=== PATIENT | male | born 1945 | race Caucasian/White ===

== ENCOUNTER 2019-09-25 10:15 | Outpatient (CLI) | payer MEDICARE, SELFPAY ==
[2019-09-25 10:50] LABS: Basophils Absolute Auto 0.05 K/mm3 (0.00-0.10); Basophils Percent Auto 0.7 % (0.0-1.0); Eosinophils Absolute Auto 0.12 K/mm3 (0.02-0.50); Eosinophils Percent Auto 1.6 % (1.0-6.0); Hematocrit 46.4 % (37.0-46.0); Hemoglobin 15.5 g/dL (12.4-15.3); Immature Granulocyte Absolute 0.02 K/mm3 (0.00-0.00); Immature Granulocyte Percent A 0.3 % (0.0-0.0); Lymphocytes Absolute Auto 2.05 K/mm3 (1.10-4.50); Lymphocytes Percent Auto 27.1 % (18.0-42.0); Mean Corpuscular HGB Conc 33.4 g/dL (32.0-36.0); Mean Corpuscular Hemoglobin 29.5 pg (27.0-31.0); Mean Corpuscular Volume 88.4 fL (78.0-102.0); Mean Platelet Volume 12.1 fl (8.7-11.0); Monocytes Absolute Auto 0.78 K/mm3 (0.10-0.90); Monocytes Percent Auto 10.3 % (2.0-11.0); Neutrophils Absolute Auto 4.6 K/mm3 (1.7-7.2); Platelet Count Result 154 K/mm3 (150-420); Red Blood Count 5.25 M/mm3 (4.70-6.10); Red Cell Distribution Width 12.7 % (11.6-14.4); White Blood Count 7.6 K/mm3 (4.8-10.8)
[2019-09-25 11:04] LABS: Creatinine Urine 85.66 mg/dL (40-278)
[2019-09-25 11:21] LABS: MALB Creatinine Ratio 11.9 mg/g (0-30); Microalbumin Urine Random 10.2 mg/L
[2019-09-25 11:37] LABS: Alanine Aminotransferase 20 U/L (16-63); Albumin Level 3.9 g/dL (3.4-5.0); Alkaline Phosphatase 80 U/L (46-116); Anion Gap 15.7 mmol/L (7-16); Aspartate Amino Transferase 17 U/L (15-37); Bilirubin,Total 0.4 mg/dL (0.00-1.00); Blood Urea Nitrogen 18 mg/dL (7-18); Calcium 9.2 mg/dL (8.5-10.1); Carbon Dioxide 24 mmol/L (21-32); Chloride 106 mmol/L (98-108); Cholesterol 131 mg/dL (0-200); Estimated Glomerular Filt Rate 51; Glucose 201 mg/dL (70-99); HDL Direct 37 mg/dL (40-60); LDL Cholesterol Calculated 68 mg/dL (<130); Osmolality Calculated 299 mOsm/kg (285-295); Potassium 4.7 mmol/L (3.5-5.1); Sodium 141 mmol/L (136-145); Total Protein 7.1 g/dL (6.4-8.2); Triglycerides 130 mg/dL (0-150)
[2019-09-25 11:38] LABS: Thyroid Stimulating Hormone Reflex 1.02 u/IU/mL (0.36-3.74)
== END 2019-09-25 10:16 | disposition home or self-care (01) ==
LOC: CHSLAB 10:19
PROVIDERS: PCP Family Medicine; Visit Provider Family Medicine
DX: E11.65 Type 2 diabetes mellitus with hyperglycemia (principal); Z79.4 Long term (current) use of insulin; I10 Essential (primary) hypertension
CPT/HCPCS: 36415; 80053; 80061; 82043; 84443; 85025

== ENCOUNTER 2019-12-28 14:46 | Outpatient (CLI) | payer MEDICARE, SELFPAY ==
--- NOTE | ~2019-12-28 | XR_ITS ---
EXAMINATION: XR foot LT min 3V EXAM DATE: 12/28/2019 15:08 INDICATION: Initial encounter following injury, with pain of the left foot. TECHNIQUE: Left foot dorsoplantar, lateral and oblique projections obtained and reviewed. There is n o prior study for comparison. FINDINGS: Left metatarsal bones unremarkable. There are no acute fractures or dislocations identifi ed. There is no subcutaneous gas. The soft tissue is unremarkable. There are no radiopaque foreig n bodies. Tiny inferior calcaneal spur. IMPRESSION: No acute osseous findings. Reviewed, dictated and finalized at location A. IMPRESSION: No acute osseous findings.
== END 2019-12-28 14:47 | disposition home or self-care (01) ==
LOC: CHSIMG 14:49
PROVIDERS: PCP Family Medicine; Visit Provider Podiatrist
DX: M79.672 Pain in left foot (principal); M77.52 Other enthesopathy of left foot and ankle
CPT/HCPCS: 73630

== ENCOUNTER 2020-09-01 07:09 | Outpatient (CLI) | payer MEDICARE, SELFPAY ==
[2020-09-01 07:48] LABS: Anion Gap 7 mmol/L (8-16); Blood Urea Nitrogen 25 mg/dL (7-18); Calcium 9.6 mg/dL (8.5-10.1); Carbon Dioxide 28 mmol/L (21-32); Chloride 99 mmol/L (98-108); Estimated Glomerular Filt Rate 41; Glucose 233 mg/dL (70-99); Osmolality Calculated 289 mOsm/kg (285-295); Potassium 4.6 mmol/L (3.5-5.1); Sodium 134 mmol/L (136-145)
== END 2020-09-01 07:10 | disposition home or self-care (01) ==
LOC: CHSLAB 07:12
PROVIDERS: PCP Family Medicine; Visit Provider Internal Medicine Endocrinology, Diabetes & Metabolism
DX: E11.65 Type 2 diabetes mellitus with hyperglycemia (principal); Z79.4 Long term (current) use of insulin
CPT/HCPCS: 36415; 80048

== ENCOUNTER 2020-10-05 07:14 | Outpatient (CLI) | payer MEDICARE, SELFPAY ==
[2020-10-05 08:18] LABS: Anion Gap 9 mmol/L (8-16); Blood Urea Nitrogen 23 mg/dL (7-18); Calcium 9.2 mg/dL (8.5-10.1); Carbon Dioxide 29 mmol/L (21-32); Chloride 101 mmol/L (98-108); Estimated Glomerular Filt Rate 42; Glucose 229 mg/dL (70-99); Osmolality Calculated 298 mOsm/kg (285-295); Potassium 4.6 mmol/L (3.5-5.1); Sodium 139 mmol/L (136-145)
== END 2020-10-05 07:15 | disposition home or self-care (01) ==
PROVIDERS: PCP Family Medicine; Visit Provider Internal Medicine Endocrinology, Diabetes & Metabolism
DX: E11.65 Type 2 diabetes mellitus with hyperglycemia (principal); Z79.4 Long term (current) use of insulin
CPT/HCPCS: 36415; 80048

== ENCOUNTER 2020-11-08 06:59 | Outpatient (CLI) | payer MEDICARE, SELFPAY ==
[2020-11-08 08:21] LABS: Cholesterol 144 mg/dL (0-200); HDL Direct 37 mg/dL (40-60); LDL Cholesterol Calculated 80 mg/dL (<130); Triglycerides 136 mg/dL (0-150)
== END 2020-11-08 07:00 | disposition home or self-care (01) ==
LOC: CHSLAB 07:02
PROVIDERS: PCP Family Medicine; Visit Provider Internal Medicine Cardiovascular Disease
DX: E78.5 Hyperlipidemia, unspecified (principal)
CPT/HCPCS: 36415; 80061

== ENCOUNTER 2020-12-14 09:26 | Outpatient (CLI) | payer MEDICARE, SELFPAY ==
[2020-12-14 10:06] LABS: Creatinine Urine 67.08 mg/dL (40-278); MALB Creatinine Ratio 19.3 mg/g (0-30); Microalbumin Urine Random < 13.0 mg/L
== END 2020-12-14 09:27 | disposition home or self-care (01) ==
PROVIDERS: PCP Family Medicine; Visit Provider Internal Medicine Endocrinology, Diabetes & Metabolism
DX: E11.65 Type 2 diabetes mellitus with hyperglycemia (principal); Z79.4 Long term (current) use of insulin
CPT/HCPCS: 82043

== ENCOUNTER 2021-09-22 15:46 | Outpatient (RCR) | payer MEDICARE, SELFPAY ==
--- NOTE | 2021-09-22 17:19 | PTOPEVAL ---
Thank you for referring Mahesh Menjivar to [facility] [place].? The patient is scheduled to be seen for therapy? ____x/week for ___ weeks. Please review, sign, date and return this plan of care EVANGELINA. I agree with and certify that the following plan of care is medically necessary. Referring Physician Date Admitting Provider: Attending Provider: Florin Solis DO Referring Provider: *PT Outpatient Evaluation Start: 09/22/21 15:54 Freq: Status: Active Protocol: Document 09/22/21 15:55 ACR (Rec: 09/22/21 17:18 ACR [id number]) Therapy Assessment Status Assessment Status Assessment Status Evaluation Evaluation Information Problem Diagnosis dorsalgia and unsteadiness on feet Onset 09/21/21 Subjective Information Patient states that he has Query Text:As Reported By Patient/ been having pain for awhile, Family but it has gotten so bad that he went to the MD. He states that he has difficulty with his back swing in golf, lifting heavy objects without pain, navigating steps, and walking for a period of time. Patient states that he cramps up pretty easily. He states that has had one fall, but he tripped over a hose. He states that he sometimes feels unsteady, mainly in the morning and notices that he has to maintain his balance using the wall. Patient states that his goal for therapy is to improve his flexibility and balance. Prior Level of Function Activity Level (Last 3 Months) Occupation retired Hand Dominance Right Activity of Daily Living Ability Independent Indoor/Home Mobility Independent Community Mobility Independent Stairs Ability Independent Functional Cognition (Planning, Shopping Independent , Taking Medications) Cooking Yes Cleaning Yes Laundry Yes Shopping Yes Driving Yes Pain Assessment Timing of Pain Assessment Timing of Pain Assessment Assessment Pain Scale Pain Scale Used Numeric (1 - 10) Self Report Pain Assessment Lower Back Reported Pain Level 7 Greatest Pain Intensity
--- NOTE | 2021-10-20 11:35 | PTOPEVAL ---
Thank you for referring Mahesh Menjivar to [facility].? The patient is scheduled to be seen for therapy? ____x/week for ___ weeks. Please review, sign, date and return this plan of care EVANGELINA. I agree with and certify that the following plan of care is medically necessary. Referring Physician Date Admitting Provider: Attending Provider: Florin Solis DO Referring Provider: *PT Outpatient Evaluation Start: 09/22/21 15:54 Freq: Status: Active Protocol: Document 10/20/21 10:34 ACR (Rec: 10/20/21 11:34 ACR [id number]) Therapy Assessment Status Assessment Status Assessment Status Progress Evaluation Information Problem Diagnosis dorsalgia and unsteadiness on feet Onset 09/21/21 Subjective Information Patient states that he is Query Text:As Reported By Patient/ doing a lot better since Family beginning therapy. His pain has decreased and he is able to perform daily activities with no increase in pain. He states that after the next couple of visits he would like to be done for a bit until he starts to have difficulty again, but he is doing his exercises at home. Pain Assessment Timing of Pain Assessment Timing of Pain Assessment Assessment Pain Scale Pain Scale Used Numeric (1 - 10) Self Report Pain Assessment Lower Back Reported Pain Level 0 Greatest Pain Intensity 4 Pain Score Pain Score 0: Self Report Interventions Used Interventions Used By Clinicians Activity or ADL's,Exercise Cervical and Lumbar ROM Lumbar ROM Lumbar ROM 75% of Normal Lower Extremity Muscle Strength Testing Hip Strength Right Hip Flexion Strength 5 Normal Hip Abduction Strength 4+ Good + Left Hip Flexion Strength 5 Normal Hip Abduction Strength 4+ Good + Knee Strength Left Knee Flexion Strength 5 Normal Knee Extension Strength 5 Normal Right Knee Flexion Strength 5 Normal Knee Extension Strength 5 Normal Balance Assessment Tinetti Balance Assessment Sitting Balance Steady, safe Ability to Arise Able, w/o using arms Attempts to Arise Arises on 1st attempt Immediate Standing Balance Steady w/o support Standing Balance Narrow stance w/o support Nudged Response Steady Standing with Eyes Closed Steady Step Pattern Turning 360 Degrees Continuous steps Stability
--- NOTE | 2021-10-27 13:09 | PTOPEVAL ---
Thank you for referring Mahesh Menjivar to [facility].? The patient is scheduled to be seen for therapy? ____x/week for ___ weeks. Please review, sign, date and return this plan of care EVANGELINA. I agree with and certify that the following plan of care is medically necessary. Referring Physician Date Admitting Provider: Attending Provider: Florin Solis DO Referring Provider: *PT Outpatient Evaluation Start: 09/22/21 15:54 Freq: Status: Active Protocol: Document 10/27/21 10:00 ACR (Rec: 10/27/21 13:08 ACR [id number]) Therapy Assessment Status Assessment Status Assessment Status Discharge Evaluation Information Problem Diagnosis dorsalgia and unsteadiness on feet Onset 09/21/21 Subjective Information Patient reports that he is Query Text:As Reported By Patient/ doing so much better since Family beginning theapy with his flexibility and no longer has the spot in his back that caused him a lot of pain. He occasionally gets pain when he overexerts himself. He states that he does not use the adame to assist with balance and walking on uneven terrain is better. Pain Assessment Timing of Pain Assessment Timing of Pain Assessment Assessment Pain Scale Pain Scale Used Numeric (1 - 10) Self Report Pain Assessment Lower Back Reported Pain Level 0 Greatest Pain Intensity 4 Pain Score Pain Score 0: Self Report Interventions Used Interventions Used By Clinicians Activity or ADL's,Exercise Cervical and Lumbar ROM Lumbar ROM Lumbar ROM 75% of Normal Lower Extremity Muscle Strength Testing Hip Strength Right Hip Flexion Strength 5 Normal Hip Abduction Strength 5 Normal Left Hip Flexion Strength 5 Normal Hip Abduction Strength 5 Normal Knee Strength Left Knee Flexion Strength 5 Normal Knee Extension Strength 5 Normal Right Knee Flexion Strength 5 Normal Knee Extension Strength 5 Normal Balance Assessment Tinetti Balance Assessment Sitting Balance Steady, safe Ability to Arise Able, w/o using arms Attempts to Arise Arises on 1st attempt Immediate Standing Balance Steady w/o support Standing Balance Narrow stance w/o support Nudged Response Steady Standing with Eyes Closed Steady Step Pattern Turning 360 Degrees Continuous steps Stability Turn
== END 2021-10-27 14:41 | disposition home or self-care (01) ==
LOC: CHSPT 15:46
PROVIDERS: PCP Family Medicine; Visit Provider Family Medicine
DX: M54.9 Dorsalgia, unspecified (principal); G89.29 Other chronic pain; R26.81 Unsteadiness on feet
CPT/HCPCS: 97014; 97110; 97112; 97161; G0283

== ENCOUNTER 2021-12-20 09:22 | Outpatient (CLI) | payer MEDICARE, SELFPAY ==
[2021-12-20 09:37] LABS: Hematocrit 52.3 % (37.0-46.0); Hemoglobin 16.6 g/dL (12.4-15.3); Mean Corpuscular HGB Conc 31.7 g/dL (32.0-36.0); Mean Corpuscular Hemoglobin 29.2 pg (27.0-31.0); Mean Corpuscular Volume 91.9 fL (78.0-102.0); Mean Platelet Volume 11.4 fl (8.7-11.0); Platelet Count Result 192 K/mm3 (150-420); Red Blood Count 5.69 M/mm3 (4.70-6.10); Red Cell Distribution Width 13.6 % (11.6-14.4); White Blood Count 7.6 K/mm3 (4.8-10.8)
[2021-12-20 09:53] LABS: Alanine Aminotransferase 19 U/L (16-63); Albumin Level 3.4 g/dL (3.4-5.0); Alkaline Phosphatase 87 U/L (46-116); Anion Gap 6 mmol/L (8-16); Aspartate Amino Transferase 15 U/L (15-37); Bilirubin,Total 0.3 mg/dL (0.00-1.00); Blood Urea Nitrogen 24 mg/dL (7-18); Carbon Dioxide 27 mmol/L (21-32); Chloride 104 mmol/L (98-108); Cholesterol 126 mg/dL (0-200); Estimated Glomerular Filt Rate 45; Glucose 264 mg/dL (70-99); HDL Direct 39 mg/dL (40-60); LDL Cholesterol Calculated 58 mg/dL (<130); Osmolality Calculated 297 mOsm/kg (285-295); Sodium 137 mmol/L (136-145); Triglycerides 145 mg/dL (0-150)
[2021-12-20 10:03] LABS: Creatinine Urine 46.27 mg/dL (40-278); Microalbumin Urine Random < 13.0 mg/L
[2021-12-20 10:04] LABS: Hemoglobin A1C 6.9 % (<5.7)
== END 2021-12-20 09:23 | disposition home or self-care (01) ==
LOC: CHSLAB 09:24
PROVIDERS: PCP Family Medicine; Visit Provider Nurse Practitioner Family
DX: E78.5 Hyperlipidemia, unspecified (principal); I10 Essential (primary) hypertension; E11.9 Type 2 diabetes mellitus without complications
CPT/HCPCS: 36415; 80053; 80061; 82043; 83036; 85027

== ENCOUNTER 2022-11-06 07:02 | Outpatient (CLI) | payer MEDICARE, SELFPAY ==
[2022-11-06 09:01] LABS: Alanine Aminotransferase 20 U/L (16-63); Albumin Level 3.6 g/dL (3.4-5.0); Alkaline Phosphatase 78 U/L (46-116); Anion Gap 7 mmol/L (8-16); Aspartate Amino Transferase 15 U/L (15-37); Bilirubin,Total 0.4 mg/dL (0.00-1.00); Blood Urea Nitrogen 20 mg/dL (7-18); Carbon Dioxide 32 mmol/L (21-32); Chloride 105 mmol/L (98-108); Cholesterol 149 mg/dL (0-200); Estimated Glomerular Filt Rate 47; Glucose 136 mg/dL (70-99); HDL Direct 41 mg/dL (40-60); LDL Cholesterol Calculated 86 mg/dL (<130); Osmolality Calculated 302 mOsm/kg (285-295); Potassium 4.5 mmol/L (3.5-5.1); Sodium 144 mmol/L (136-145); Total Protein 6.8 g/dL (6.4-8.2); Triglycerides 111 mg/dL (0-150)
[2022-11-06 10:54] LABS: Calcium 8.9 mg/dL (8.5-10.1)
== END 2022-11-06 07:03 | disposition home or self-care (01) ==
LOC: CHSLAB 07:07
PROVIDERS: PCP Family Medicine; Visit Provider Internal Medicine Cardiovascular Disease
DX: E78.5 Hyperlipidemia, unspecified (principal)
CPT/HCPCS: 36415; 80053; 80061

== ENCOUNTER 2023-04-03 18:41 | Emergency (ER) | payer MEDICARE, SELFPAY ==
--- NOTE | ~2023-04-03 | XR_ITS ---
EXAMINATION: XR chest 1V portable Exam Date/Time: 04/03/2023 20:20 CDT HISTORY: LOW BLOOD SUGAR/NO CHEST COMPLAINTS Comparison: 10/20/2015. RESULT: Lines, tubes, and devices: Intact sternotomy wires. Mediastinal surgical clips. Lungs and pleura: Senescent changes, bibasilar scar/atelectasis, otherwise clear. Cardiomediastinal silhouette: Stable. Other: No acute osseous or upper abdominal finding. IMPRESSION: No acute cardiopulmonary process. Reviewed, dictated and finalized at location K.
[2023-04-03 18:49] VITALS: BP 117/59; PULSE 82; RESP 18; TEMP 36.7; O2SAT 98
[2023-04-03 18:49] LABS: Glucose Point of Care 147 mg/dl (65-105)
--- NOTE | 2023-04-03 18:51 | ED.GENADULT ---
HPI - General Adult General Chief complaint: Unspecified Stated complaint: Low BS Time Seen by Provider: 04/03/23 18:51 Source: patient Mode of arrival: ambulatory Limitations: no limitations History of Present Illness HPI narrative: 77-year-old male, smoker with a history of hypertension, CAD status post CABG in 2016, CHF, dyslipidemia, CKD, diabetes mellitus on 70 30 insulin around 50 units b.i.d., Farxiga and metformin took his blood sugar today evening and noted to be greater than 150. He went ahead and took is 50 units of 70 30. Subsequently the patient -- felt extremely weak following which she he is sat on the floor. -- His blood sugar was noted to be 33. -- Profuse sweating his daughter gave him 3 bits of candy. EMS was summoned who Started him on D10 drip and give him approximately 250 mL. The patient became alert and oriented. On presentation to the hospital he was noted to have a blood sugar of greater than 150. The patient denied any chest pain or shortness of breath. Onset (ago): hour(s) ( 2 hour ago) Relieving factors: other ( IV dextrose) Associated symptoms: denies other symptoms and confusion Related Data Home Medications Medication Instructions Recorded Confirmed aspirin 81 mg tablet,delayed 81 mg PO DAILY 07/07/19 04/03/23 release ibuprofen 200 mg-diphenhydramine 1 cap PO ONCE 07/07/19 04/03/23 HCl 25 mg capsule (Advil PM Liqui-Gels) Allergies Allergy/AdvReac Type Severity Reaction Status Date / Time No Known Allergies Allergy Unknown Verified 01/10/23 07:11 Review of Systems Review of Systems: generalized weakness, confusion and diaphoresis which have resolved All systems reviewed & are unremarkable except as noted in HPI and below Constitutional: Constitutional: Reports as per HPI, Reports no additional constitutional complaints and Reports weakness Eyes: Eyes: Reports as per HPI and Reports no additional eye complaints ENT: Reports system reviewed and no additional complaints, except as documented and Reports as per HPI Cardiovascular: Cardiovascular: Reports as per HPI and Reports no additional cardiovascular complaints Respiratory: Respiratory: Reports as per HPI and Reports no additional respiratory complaints Gastrointestinal: Gastrointestinal: Reports as per HPI and Reports no additional gastrointestinal complaints Genitourinary: Genitourinary: Reports no additional male genitourinary complaints Musculoskeletal: Musculoskeletal: Reports no additional musculoskeletal complaints Integumentary/Breasts: Skin/Breast: Reports system reviewed and no additional complaints, except as docu Neurologic: Reports system reviewed and no additional complaints, except as documented and Reports as per HPI Psychiatric: Psychiatric: Reports no additional psychiatric complaints and Reports as per HPI Endocrine: Endocrine: Reports no additional endocrine complaints and Reports as per HPI Hematologic/Lymphatic: Hematologic/Lymphatic: Reports no additional hematologic/lymphatic complaints and Reports as per HPI Allergic/Immunologic: Allergic/Immunologic: Reports no additional allergic/immunologic complaints and Reports as per HPI [facility] Past Medical History Medical History Anxiety CKD (chronic kidney disease) stage 3, GFR 30-59 ml/min Coronary artery disease involving autologous vein coronary bypass graft with angina pectoris Dyslipidemia Essential hypertension (03/07/18) Hyperlipidemia (09/13/17) Insulin-requiring or dependent type II diabetes mellitus (09/13/17) Myocardial infarction Systolic dysfunction Surgical History Surgical History History of surgical procedure on eye proper using laser Hx of appendectomy S/P triple vessel bypass Family History Family History Sibling Family history of malignant
--- NOTE | 2023-04-03 18:59 | ECG_ITS ---
Measurements Intervals [place] Rate: 82 P: 38 LA: 161 QRS: 117 QRSD: 147 T: 57 QT: 434 QTc: 508 Interpretive Statements SINUS RHYTHM RIGHT BUNDLE BRANCH BLOCK [120+ ms QRS DURATION, UPRIGHT V1, 40+ ms S IN I/aVL/V4/V5/V6] LEFT POSTERIOR FASCICULAR BLOCK [QRS AXIS > 109, INFERIOR Q] ABNORMAL ECG NO PREVIOUS ECG AVAILABLE FOR COMPARISON Electronically Signed On 04-04-2023 9:11:08 CDT by Rishi Vieyra M.D.
--- NOTE | 2023-04-03 19:08 | PC.NURSE ---
report to neto mcdowell
[2023-04-03 19:09] LABS: Basophils Absolute Auto 0.07 K/mm3 (0.00-0.10); Basophils Percent Auto 0.7 % (0.0-1.0); Eosinophils Absolute Auto 0.34 K/mm3 (0.02-0.50); Eosinophils Percent Auto 3.3 % (1.0-6.0); Hematocrit 46.3 % (37.0-46.0); Hemoglobin 14.9 g/dL (12.4-15.3); Immature Granulocyte Absolute 0.04 K/mm3 (0.00-0.00); Immature Granulocyte Percent A 0.4 % (0.0-0.0); Lymphocytes Absolute Auto 2.63 K/mm3 (1.10-4.50); Lymphocytes Percent Auto 25.5 % (18.0-42.0); Mean Corpuscular HGB Conc 32.2 g/dL (32.0-36.0); Mean Corpuscular Hemoglobin 29.1 pg (27.0-31.0); Mean Corpuscular Volume 90.4 fL (78.0-102.0); Mean Platelet Volume 11.1 fl (8.7-11.0); Monocytes Absolute Auto 1.02 K/mm3 (0.10-0.90); Monocytes Percent Auto 9.9 % (2.0-11.0); Neutrophils Absolute Auto 6.2 K/mm3 (1.7-7.2); Neutrophils Percent Auto 60.2 % (50.0-70.0); Platelet Count Result 215 K/mm3 (150-420); Red Blood Count 5.12 M/mm3 (4.70-6.10); Red Cell Distribution Width 13.4 % (11.6-14.4); White Blood Count 10.3 K/mm3 (4.8-10.8)
[2023-04-03] MEDS: GLUCAGON FOR INJ 1 MG VIAL IV PUSH (19:13)
[2023-04-03] MEDS: DEXTROSE 10% 250 ML 50 ML IV CONT (19:16)
[2023-04-03 19:25] LABS: Alanine Aminotransferase 9 U/L (16-63); Albumin Level 3.3 g/dL (3.4-5.0); Alkaline Phosphatase 66 U/L (46-116); Anion Gap 13 mmol/L (8-16); Aspartate Amino Transferase 23 U/L (15-37); Bilirubin,Total 0.3 mg/dL (0.00-1.00); Blood Urea Nitrogen 29 mg/dL (7-18); Calcium 8.8 mg/dL (8.5-10.1); Carbon Dioxide 24 mmol/L (21-32); Chloride 106 mmol/L (98-108); Estimated CRCL calculation 32 ml/min; Estimated Glomerular Filt Rate 46; Glucose 102 mg/dL (70-99); Osmolality Calculated 301 mOsm/kg (285-295); Potassium 3.2 mmol/L (3.5-5.1); Sodium 143 mmol/L (136-145); Total Protein 6.7 g/dL (6.4-8.2)
[2023-04-03 19:27] LABS: Troponin I 20.8 ng/L (0.00-60.4)
[2023-04-03 19:29] LABS: Lactic Acid Reflex 3.2 mmol/L (0.4-2.0)
--- NOTE | 2023-04-03 19:30 | PC.NURSE ---
Pt resting, daughter at bedside, pt given turkey sandwich and food tray. Continuing to monitor.
[2023-04-03 19:38] LABS: Lipase 299 U/L (16-77)
[2023-04-03] MEDS: LACTATED RINGERS 1,000 ML 999 ML IV CONT (20:15)
[2023-04-03 20:32] LABS: Appearance Urine Clear (Clear); Bilirubin Urine Negative (Negative); Blood Urine Negative (Negative); Color Urine Light Yellow (Yellow); Glucose Urine UA 3+ (Negative); Ketones Urine Negative (Negative); Leukocyte Esterase Ur Negative LEU/UL (Negative); Nitrate Urine Negative (Negative); Protein Urine Negative (Negative); Specific Grav Ur 1.015 (1.010-1.020); Urobilinogen Urine 0.2 mg/dL (0.2-1.0)
[2023-04-03 20:33] LABS: Add Urine Microscopic? NO
[2023-04-03 20:56] LABS: Glucose Point of Care 119 mg/dl (65-105)
[2023-04-03 22:03] VITALS: BP 127/77; PULSE 77; RESP 20; O2SAT 97
[2023-04-03 22:06] LABS: Reflex Lactic Acid Yes or No Add Lactic
[2023-04-03 22:31] LABS: Glucose Point of Care 155 mg/dl (65-105)
[2023-04-03 23:02] VITALS: BP 124/68; PULSE 80; RESP 20; O2SAT 96
--- NOTE | 2023-04-03 23:58 | PC.NURSE ---
2322 Dextrose IV fluids stopped
[2023-04-04 00:02] LABS: Glucose Point of Care 241 mg/dl (65-105)
[2023-04-04 00:54] VITALS: BP 122/89; PULSE 78; RESP 20; TEMP 36.8; O2SAT 96
[2023-04-04 00:56] LABS: Glucose Point of Care 240 mg/dl (65-105)
== END 2023-04-04 01:01 | disposition home or self-care (01) ==
PROVIDERS: Emergency Provider Internal Medicine Critical Care Medicine; PCP Family Medicine
DX: E11.649 Type 2 diabetes mellitus with hypoglycemia without coma (principal); I12.9 Hypertensive chronic kidney disease with stage 1 through stage 4 chronic kidney disease, or unspecified chronic kidney disease; N18.32 Chronic kidney disease, stage 3b; E11.22 Type 2 diabetes mellitus with diabetic chronic kidney disease; I25.810 Atherosclerosis of coronary artery bypass graft(s) without angina pectoris; E78.5 Hyperlipidemia, unspecified; I25.2 Old myocardial infarction; F41.9 Anxiety disorder, unspecified; F17.210 Nicotine dependence, cigarettes, uncomplicated; Z79.1 Long term (current) use of non-steroidal anti-inflammatories (NSAID); Z79.4 Long term (current) use of insulin
CPT/HCPCS: 36415; 71045; 80053; 81003; 82948; 83605; 83690; 84484; 85025; 93005; 96361; 96374; 96375; 99284; J1610; J7120

== ENCOUNTER 2023-11-19 07:02 | Outpatient (CLI) | payer MEDICARE, SELFPAY ==
[2023-11-19 08:21] LABS: Alanine Aminotransferase 23 U/L (16-63); Albumin Level 3.6 g/dL (3.4-5.0); Alkaline Phosphatase 80 U/L (46-116); Anion Gap 8 mmol/L (8-16); Aspartate Amino Transferase 14 U/L (15-37); Bilirubin,Total 0.5 mg/dL (0.00-1.00); Blood Urea Nitrogen 29 mg/dL (7-18); Calcium 9.2 mg/dL (8.5-10.1); Carbon Dioxide 30 mmol/L (21-32); Chloride 103 mmol/L (98-108); Cholesterol 138 mg/dL (0-200); Estimated Glomerular Filt Rate 39; Glucose 166 mg/dL (70-99); HDL Direct 46 mg/dL (40-60); LDL Cholesterol Calculated 69 mg/dL (<130); Osmolality Calculated 301 mOsm/kg (285-295); Potassium 5.1 mmol/L (3.5-5.1); Sodium 141 mmol/L (136-145); Total Protein 6.6 g/dL (6.4-8.2); Triglycerides 117 mg/dL (0-150)
== END 2023-11-19 07:03 | disposition home or self-care (01) ==
LOC: CHSLAB 07:07
PROVIDERS: PCP Family Medicine; Visit Provider Internal Medicine Cardiovascular Disease
DX: E78.5 Hyperlipidemia, unspecified (principal)
CPT/HCPCS: 36415; 80053; 80061

== ENCOUNTER 2025-01-13 07:04 | Outpatient (CLI) | payer MEDICARE, SELFPAY ==
--- OUTSIDE RECORDS SUMMARY | 2025-01-13 07:09 | XMS_ITS | Referral Summary ---
Author Organization [facility] [place] [facility] Address [address] [place] [address] Care Team Providers Care Sheepskin Pickler Name Role Phone Loc Kevin MD Primary Care Provider Allergies No known active allergies Medications lancets (TRUEPLUS LANCETS) 30 gauge misc test bood sugars twice everyd ay and as needed 0 3 Active blood glucose diagnostic (TRUETEST TEST STRIPS) strip test 1 by finger stick BS route before meals twice every day and as needed 60 0 3 Active insulin NPH-insulin regular (HumuLIN 70/30) 100 unit/mL (70-30) injection INJECT 30 UNITS IN AM AND 40 UNITS IN PM 3 vial 3 3 Active Additional Information Patient taking differently: 40 units morning 50 units evening, Reported on 09/16/2018 ALPRAZolam (XANAX) 0.5 mg tablet take 1 tablet by oral route 2 times every day 0 0 6 Active pravastatin (PRAVACHOL) 40 mg tablet take 1 tablet by oral route every day 0 0 6 Active aspirin (ASPIR-81) 81 mg tablet take 1 tablet by oral route every day 0 0 6 Active TRUEPLUS INSULIN 1 mL 31 gauge x 5/16 syringe USE TO INJECT TWICE A DAY 3 8 Active metFORMIN XR (GLUCOPHAGE XR) 500 mg 24 hr tablet TAKE 2 TABLETS BY MOUTH EVERY DAY WITH BREAKFAST 180 tablet 1 9 Active Additional Information Patient taking differently: 500 mg oral 2 times daily before meals (bkfst, dinner), Reported on 04/04/2021 ramipriL (ALTACE) 5 mg capsule Take 1 capsule by mouth daily 0 Active carvediloL (COREG) 6.25 mg tablet TAKE 1 TABLET BY MOUTH EVERY 12 HOURS WITH FOOD/MEAL 1 Active empagliflozin (JARDIANCE) 25 mg tabletIndicatio ns:type 2 diabetes mellitus Take 1 tablet (25 mg total) by mouth daily 30 tablet 6 1 Active chlorthalidone 25 mg tabletIndicatio ns:Type 2 diabetes mellitus with hyperglycemia, with long-term current use of insulin (HCC) TAKE 1 TABLET BY MOUTH EVERY DAY 90 tablet 2 1 Active Active Problems Problem Noted Date Diagnosed Date Hyperlipidemia associated with type 2 diabetes roberto tae 04/15/2018 Assessment & Plan (01/28/2020 3:28 PM CDT): At goal on current medications. Continue statin therapy. Assessment & Plan (09/24/2019 12:53 PM QUALITY ASSURANCE INTERN): Goal of treatment , LDL cholesterol less than 100 ( less than 70 in patients with history of heart attacks and / or strokes ) NonHDL cholesterol ( total cholesterol minus HDL cholesterol ) goal less than 130 ( less than 100 in patients with history of heart attacks and / or strokes ) Low cholesterol, low fat diet was discussed and advised. Daily exercise On statin therapy with Pravachol Assessment & Plan (03/17/2019 9:59 AM CDT): Goal of treatment , LDL cholesterol less than 100 ( less than 70 in patients with history of heart attacks and / or strokes ) NonHDL cholesterol ( total cholesterol minus HDL cholesterol ) goal less than 130 ( less than 100 in patients with history of heart attacks and / or strokes ) Low cholesterol, low fat diet was discussed and advised. Daily exercise On statin therapy Assessment & Plan (09/16/2018 12:07 PM QUALITY ASSURANCE INTERN): Goal of treatment , LDL cholesterol less than 100 ( less than 70 in patients with history of heart attacks and / or strokes ) NonHDL cholesterol ( total cholesterol minus HDL cholesterol ) goal less than 130 ( less than 100 in patients with history of heart attacks and / or strokes ) Low cholesterol, low fat diet was discussed and advised. Daily exercise On statin therapy Assessment & Plan (04/15/2018 3:55 PM CDT): Goal of treatment , LDL cholesterol less than 100 ( less than 70 in patients with history of heart attacks and / or strokes ) NonHDL cholesterol ( total cholesterol minus HDL cholesterol ) goal less than 130 ( less than 100 in patients with history of heart attacks and / or strokes ) Low cholesterol, low fat diet was discussed and advised. Daily exercise On statin therapy Coronary artery disease invo lving autologous artery coronary bypass graft 02/21/2017 Assessment & Plan (03/17/2019 10:00 AM CDT): Would recommend to start Jardiance or Invokana. Reluctant to start meds Assessment & Plan (09/16/2018 12:07 PM QUALITY ASSURANCE INTERN): Invokana or Jardiance indicated, but pt says he can't afford it. Assessment & Plan (06/27/2017 10:07 AM CDT): Would recommend to start Invokana. Encounter for postoperative care 11/28/2015 Overview (11/29/2016): Post surgical visit Hypertension associated with diabetes 01/27/2013 Overview (11/28/2016): Hypertension, Unspecified Assessment & Plan (04/04/2021 2:27 PM CDT): Goal blood pressure is less than 140/85 Low salt diet was discussed andd recommended The importance of daily aerobic exercise was also emphasized. Continue current meds, including MAGI-I or ARB, e.g. Assessment & Plan (12/13/2020 2:45 PM CDT): Goal blood pressure is less than 140/85 Low salt diet was discussed andd recommended The importance of daily aerobic exercise was also emphasized. Continue current meds, including MAGI-I or ARB, e.g. Check microalbumin Assessment & Plan (08/04/2020 10:16 AM QUALITY ASSURANCE INTERN): Goal blood pressure is less than 140/85 Low salt diet was discussed andd recommended The importance of daily aerobic exercise was also emphasized. Continue current meds, including MAGI-I or ARB, e.g. Add chlorthalidone Recheck BMP in 4 weeks. Assessment & Plan (01/28/2020 3:28 PM CDT): Controlled on current medications. Continue plan. Assessment & Plan (10/01/2017 3:09 PM QUALITY ASSURANCE INTERN): Goal blood pressure is less than 140/85 Low salt diet recommended Daily aerobic exercise Continue current meds, including MAGI-I or ARB Assessment & Plan (06/27/2017 10:00 AM CDT): Goal blood pressure is less than 140/85 Low salt diet recommended Daily aerobic exercise Continue current meds, including MAGI-I or ARB Assessment & Plan (02/21/2017 11:22 AM CDT): Goal blood pressure is less than 140/85 Low salt diet recommended Daily aerobic exercise Continue current meds, including MAGI-I or ARB Hyperlipidemia 01/27/2013 Overview (11/29/2016): HYPERLIPIDEMIA NEC/NOS Assessment & Plan (10/01/2017 3:09 PM QUALITY ASSURANCE INTERN): Goal of treatment , LDL cholesterol less than 100 ( less than 70 in patients with history of heart attacks and / or strokes ) NonHDL cholesterol goal less than 130 ( less than 100 in patients with history of heart attacks and / or strokes ) Continue statin therapy Assessment & Plan (06/27/2017 10:01 AM CDT): Goal of treatment , LDL cholesterol less than 100 ( less than 70 in patients with history of heart attacks and / or strokes ) NonHDL cholesterol goal less than 130 ( less than 100 in patients with history of heart attacks and / or strokes ) Continue statin therapy Assessment & Plan (02/21/2017 11:23 AM CDT): Goal of treatment , LDL cholesterol less than 100 ( less than 70 in patients with history of heart attacks and / or strokes ) NonHDL cholesterol goal less than 130 / 100 Lipids at goal. Continue statin therapy Low cholesterol diet, exercise advised. Type 2 diabetes mellitus 09/29/2012 Overview (11/30/2016): DMII WO CMP UNCNTRLD Assessment & Plan (04/04/2021 2:26 PM CDT): Hba1c was Lab Results Component Value Date HGBA1C 7.3 (A) 04/04/2021 today, indicating Inadequate DM control Goal blood sugars in the 120-150 range , with Hb1c under 7.0 % was explained 1800 calorie, consistent carb diet recommended. No more than 30-45 grams of carbs per meal recommended, as well as avoiding high concentrated sweet drinks . 25-45 min daily exercise, combining both aerobic and resistance exercise recommended. The need to monitor blood glucose before meals and bedtime was discussed. Prevention and treatment of hyypoglcyemia discussed. Add Jardiance, 25 mg daily Assessment & Plan (12/13/2020 2:44 PM CDT): Hba1c was Lab Results Component Value Date HGBA1C 7.2 12/13/2020 today, indicating suboptimal, DM control with hypoglycemia Goal blood sugars in the 120-150 range , with Hb1c under 7.0 % was explained 1800 calorie, consistent carb diet recommended. No more than 30-45 grams of carbs per meal recommended, as well as avoiding high concentrated sweet drinks . 25-45 min daily exercise, combining both aerobic and resistance exercise recommended. The need to monitor blood glucose before meals and bedtime was discussed. Prevention and treatment of hyypoglcyemia discussed. Lower evening 70/30 insulin to 40 units in the evening and increase to 50 units in the morning Continue metformin Assessment & Plan (08/04/2020 10:17 AM QUALITY ASSURANCE INTERN): Hba1c was Lab Results Component Value Date HGBA1C 7.2 08/04/2020 today, indicating ... DM control Goal blood sugars in the 120-150 range , with Hb1c under 7.0 % was explained 1800 calorie, consistent carb diet recommended. No more than 30-45 grams of carbs per meal recommended, as well as avoiding high concentrated sweet drinks . 25-45 min daily exercise, combining both aerobic and resistance exercise recommended. The need to monitor blood glucose was discussed. Prevention and treatment of hyypoglcyemia discussed. Lower NPH 70/30 by 5 units each time Assessment & Plan (01/28/2020 3:22 PM CDT): A1c 7.7. Reporting more recent FBG < 90. Advised reducing pm dose of insulin to keep the morning sugars not under 90. Continue metformin. Focus on diet exercise. Medications reviewed. Assessment & Plan (09/24/2019 12:52 PM QUALITY ASSURANCE INTERN): Hba1c was Lab Results Component Value Date HGBA1C 7.4 09/24/2019 today, indicating sub-optimal DM control 1800 calorie, consistent carb diet recommended. No more than 30-45 grams of carbs per meal recommended, as well as avoiding high concentrated sweet drinks . 25-45 min daily exercise, combining both aerobic and resistance exercise recommended. The need to monitor blood glucose before meals and bedtime was discussed. Prevention and treatment of hyypoglcyemia discussed. Insulin dose: Continue current regimen Continue Metformin Assessment & Plan (03/17/2019 9:59 AM CDT): Hba1c was Lab Results Component Value Date HGBA1C 7.5 % 03/17/2019 today, indicating adequate DM control 1800 calorie, consistent carb diet recommended 25-45 min daily exercise, combining both aerobic and resistance exercise recommended. The need to monitor blood glucose before meals and bedtime was discussed. Dose of basal and prandial insulin adjusted as follows: Continue current regimen Prevention and treatment of hyypoglcyemia discussed. Assessment & Plan (09/16/2018 12:07 PM QUALITY ASSURANCE INTERN): Hba1c was Lab Results Component Value Date HGBA1C 7.1 04/15/2018 today, indicating Adequate DM control 1800 calorie, consistent carb diet recommended 25-45 min daily exercise, combining both aerobic and resistance exercise recommended. The need to monitor blood glucose before meals and bedtime was discussed. Dose of basal and prandial insulin adjusted as follows: Continue current regimen Prevention and treatment of hyypoglcyemia discussed. Assessment & Plan (04/15/2018 3:55 PM CDT): Your Hba1c today was: Lab Results Component Value Date HGBA1C 7.1 04/15/2018 meaning a 3 month average sugar of : 150 Your goal hba1c is under 7.0 to prevent custodial diabetes complications ( eye , kidney and nerve damage ) . Your goal sugars are in the 90-130 range Daily aerobic ( walking, riding a bike, swimming ) and resistance exercises ( light weight lifting, resistance band stretching ) for at least 30 minutes is recommended If you can not walk, chair exercises is very acceptable. As little as 15-20 minutes exercise , in one or two sessions a day, is still very helpful and will help to improve your diabetes control . Eat small portion meals, no more than 1800 calories Diet Try to eat not more than than 2-3 servings of carbs ( starches ) wiith your meals. Avoid soft drinks, including regular sodas , fruit juices and sweetened tea. Drink water instead. Eat plenty of green and leafy vegetables, including salads. Take your medications regularly,including your insulin injections. Monitor your sugar levels with finger sticks regularly and keep a log sheet or book. Bring your sugar meter and /or a log book or log sheet to every office visit. Stop Invokana Increase Metformin to 1000 mg once a day Assessment & Plan (10/01/2017 3:01 PM QUALITY ASSURANCE INTERN): Hba1c was 7.7 today, indicating DM control 1800 calorie, consistent carb diet recommended 30 min daily aerobic and resistance exercise recommended Prevention and treatment of hyypoglcyemia discussed. Blood glucose monitoring with fingers sticks 2 x day . Foot care was discussed. Assessment & Plan (06/27/2017 10:06 AM CDT): Hba1c was 8.2 today, indicating DM control 1800 calorie, consistent carb diet recommended 30 min daily aerobic and resistance exercise recommended Prevention and treatment of hyypoglcyemia discussed. Blood glucose monitoring with fingers sticks 2 x day . Foot care was discussed. Assessment & Plan (02/21/2017 11:22 AM CDT): Hba1c was 7.9 today, indicating adequate DM control 1800 calorie, consistent carb diet recommended 30 min daily aerobic and resistance exercise recommended Foot care discused. Prevention and treatment of hyypoglcyemia discussed. Will get report of eye exam Social History Tobacco Use Types Packs/Day Years Used Date Smoking Tobacco: Former Smokeless Tobacco: Never Alcohol Use Standard Drinks/Week Comments No 0 (1 standard drink = 0.6 oz pur e alcohol) PHQ-2 Answer Date Recorded PHQ-2 Total Score (If total score is 3 or more points, staff should administer the PHQ-9) 0 12/13/2020 Sex and Gender Information Value Date Recorded Sex Assigned at Not on file Legal Sex Male 11:04 AM QUALITY ASSURANCE INTERN Gender Identity Not on file Sexual Orientation Not on file Last Filed Vital Signs Vital Sign Reading Time Taken Comments Blood Pressure 108/70 04/04/2021 2:12 PM CDT Pulse 100 04/04/2021 2:12 PM CDT Temperature - - Respiratory Rate 18 04/04/2021 2:12 PM CDT Oxygen Saturation - - Inhaled Oxygen Concentration - - Weight 72.9 kg (160 lb 12.8 oz) 04/04/2021 2:12 PM CDT Height 165.1 cm (5' 5 ) 04/04/2021 2:12 PM CDT Body Mass Index 26.76 04/04/2021 2:12 PM CDT Plan of Treatment Not on file Insurance MEDICARE [facility] Care Teams Sheepskin Pickler Relationship Specialty Start Date End Date Loc Kevin MD PCP - General Family Medicine 01/28/20
--- OUTSIDE RECORDS SUMMARY | 2025-01-13 07:10 | XMS_ITS | Clinical Summary ---
Author Organization [facility] [place] 8 [facility] Address [address] [place] [address] Care Team Providers Care Employee Communications Coordinator Name Role Phone Loc Kevin MD Primary [...] therapy. Assessment & Plan (09/24/2019 12:53 PM PAID INTERNSHIP): Goal of treatment , LDL cholesterol less [...] therapy Assessment & Plan (09/16/2018 12:07 PM PAID INTERNSHIP): Goal of treatment , LDL cholesterol less [...] meds Assessment & Plan (09/16/2018 12:07 PM PAID INTERNSHIP): Invokana or Jardiance indicated, but pt says [...] microalbumin Assessment & Plan (08/04/2020 10:16 AM PAID INTERNSHIP): Goal blood pressure is less than 140/85 Low salt diet was discussed andd recommended The importance of daily aerobic exercise was also emphasized. Continue current meds, including MAGI-I or ARB, e.g. Add chlorthalidone Recheck BMP in 4 weeks. Assessment & Plan (01/28/2020 3:28 PM CDT): Controlled on current medications. Continue plan. Assessment & Plan (10/01/2017 3:09 PM PAID INTERNSHIP): Goal blood pressure is less than 140/85 [...] NEC/NOS Assessment & Plan (10/01/2017 3:09 PM PAID INTERNSHIP): Goal of treatment , LDL cholesterol less [...] metformin Assessment & Plan (08/04/2020 10:17 AM PAID INTERNSHIP): Hba1c was Lab Results Component Value Date [...] reviewed. Assessment & Plan (09/24/2019 12:52 PM PAID INTERNSHIP): Hba1c was Lab Results Component Value Date [...] discussed. Assessment & Plan (09/16/2018 12:07 PM PAID INTERNSHIP): Hba1c was Lab Results Component Value Date [...] goal hba1c is under 7.0 to prevent [facility] diabetes complications ( eye , kidney and [...] day Assessment & Plan (10/01/2017 3:01 PM PAID INTERNSHIP): Hba1c was 7.7 today, indicating DM control [...] discussed. Will get report of eye exam Surgical History Surgery Date Site/Laterality Comments APPENDECTOMY Appendectomy OTHER SURGICAL HISTORY CABG X 3 Medical History Medical History Date Comments Chronic coronary artery disease Coronary artery disease Malignant neoplasm of skin Cance r, skin Gastroesophageal reflux disease GERD Diabetes mellitus (HCC) Diabetes Hyperlipidemia Hyperlipidemia Anxiety disorder Anxiety Hx Other Medical Claustrophobic; Comments: GF 05/04/2014 - Type 2 diabetes mellitus (HCC) D iabetes type 2; Comments: AMB 11/28/2015 - Hx Other Medical hyperlipidemia; Comments: AMB 11/28/2015 - Hx Other Medical skin cancer; Co mments: AMB 11/28/2015 - Hypertension Hypertension Family History Medical History Relation Name Comments Diabetes Other Family history of Diabetes mellitus; Relation Name Status Comments Other Social History Tobacco Use Types Packs/Day Years [...] on file Legal Sex Male 11:04 AM PAID INTERNSHIP Gender Identity Not on file Sexual Orientation Not on file Obstetrics History Last Filed Vital Signs Vital Sign Reading [...] of Treatment Not on file Insurance MEDICARE [facility] Care Teams Employee Communications Coordinator Relationship Specialty Start Date End Date Loc Kevin MD PCP - General Family Medicine 01/28/20
[2025-01-13 08:01] LABS: Hemoglobin A1C 6.6 % (<5.7)
[2025-01-13 08:11] LABS: Alanine Aminotransferase 15 U/L (6-50); Alkaline Phosphatase 77 U/L (38-126); Anion Gap 4 mmol/L (4-12); Aspartate Amino Transferase 26 U/L (17-59); Bilirubin,Total 0.5 mg/dL (0.2-1.3); Blood Urea Nitrogen 25 mg/dL (9-20); Carbon Dioxide 27 mmol/L (22-30); Chloride 105 mmol/L (98-107); Cholesterol 155 mg/dL (0-200); Estimated Glomerular Filt Rate 46; Glucose 116 mg/dL (65-110); HDL Direct 43 mg/dL; LDL Cholesterol Calculated 94 mg/dL (<130); Magnesium 2.1 mg/dL (1.6-2.3); Osmolality Calculated 287 mOsm/kg (285-295); Potassium 5.4 mmol/L (3.4-5.0); Sodium 136 mmol/L (137-145); Total Protein 6.8 g/dL (6.3-8.2); Triglycerides 91 mg/dL (<150)
== END 2025-01-13 07:05 | disposition home or self-care (01) ==
LOC: CHSLAB 07:06
PROVIDERS: PCP Family Medicine; Visit Provider Internal Medicine Cardiovascular Disease
DX: E11.9 Type 2 diabetes mellitus without complications (principal); E78.5 Hyperlipidemia, unspecified; Z79.4 Long term (current) use of insulin
CPT/HCPCS: 36415; 80053; 80061; 83036; 83735

== ENCOUNTER 2025-01-28 09:59 | Outpatient (CLI) | payer MEDICARE, SELFPAY ==
--- NOTE | ~2025-01-28 | XR_ITS ---
Lumbosacral Spine: AP and lateral views Clinical History: Pain Findings: There is mild straightening of the lumbar lordosis. No fracture or subluxation. There is se driss degenerative disc narrowing at all lumbar levels, with probable partial fusion across the L1-L2 disc space. There is severe facet arthropathy throughout the lumbar spine. The sacroiliac joints are normally outlined. Impression: Severe degenerative spondylosis throughout the lumbar spine. Reviewed, dictated and finalized at location . Impression: Severe degenerative spondylosis throughout the lumbar spine.
--- NOTE | ~2025-01-28 | XR_ITS ---
AP and oblique views of the SI joints CLINICAL HISTORY: Back pain FINDINGS: Bilateral hip joints are unremarkable. Bilateral SI joints are unremarkable aside from poss ible minimal degenerative change. There is degenerative spondylosis of the visualized lower lumbar sp ine. No fracture or dislocation seen. Soft tissues are unremarkable. IMPRESSION: Minimal degenerative changes of the SI joints. Degenerative spondylosis of the visualized lower lumbar spine. Reviewed, dictated and finalized at location M.
--- OUTSIDE RECORDS SUMMARY | 2025-01-28 10:53 | XMS_ITS | Clinical Summary ---
Author Organization [facility] [place] [facility] Address [address] [place] [address] Care Team Providers Care Beef Specialist Name Role Phone Loc Kevin MD Primary [...] therapy. Assessment & Plan (09/24/2019 12:53 PM DROPHAMMER OPERATOR): Goal of treatment , LDL cholesterol less [...] therapy Assessment & Plan (09/16/2018 12:07 PM DROPHAMMER OPERATOR): Goal of treatment , LDL cholesterol less [...] meds Assessment & Plan (09/16/2018 12:07 PM DROPHAMMER OPERATOR): Invokana or Jardiance indicated, but pt says [...] microalbumin Assessment & Plan (08/04/2020 10:16 AM DROPHAMMER OPERATOR): Goal blood pressure is less than 140/85 Low salt diet was discussed andd recommended The importance of daily aerobic exercise was also emphasized. Continue current meds, including MAGI-I or ARB, e.g. Add chlorthalidone Recheck BMP in 4 weeks. Assessment & Plan (01/28/2020 3:28 PM CDT): Controlled on current medications. Continue plan. Assessment & Plan (10/01/2017 3:09 PM DROPHAMMER OPERATOR): Goal blood pressure is less than 140/85 [...] NEC/NOS Assessment & Plan (10/01/2017 3:09 PM DROPHAMMER OPERATOR): Goal of treatment , LDL cholesterol less [...] metformin Assessment & Plan (08/04/2020 10:17 AM DROPHAMMER OPERATOR): Hba1c was Lab Results Component Value Date [...] reviewed. Assessment & Plan (09/24/2019 12:52 PM DROPHAMMER OPERATOR): Hba1c was Lab Results Component Value Date [...] discussed. Assessment & Plan (09/16/2018 12:07 PM DROPHAMMER OPERATOR): Hba1c was Lab Results Component Value Date [...] goal hba1c is under 7.0 to prevent longterm diabetes complications ( eye , kidney and [...] day Assessment & Plan (10/01/2017 3:01 PM DROPHAMMER OPERATOR): Hba1c was 7.7 today, indicating DM control [...] on file Legal Sex Male 11:04 AM DROPHAMMER OPERATOR Gender Identity Not on file Sexual Orientation [...] 2:12 PM CDT Height 165.1 cm (5' 5) 04/04/2021 2:12 PM CDT Body Mass Index 26.76 04/04/2021 2:12 PM CDT Plan of Treatment Not on file Insurance MEDICARE [facility] Care Teams Beef Specialist Relationship Specialty Start Date End Date Loc Kevin MD PCP - General Family Medicine 01/28/20
--- OUTSIDE RECORDS SUMMARY | 2025-01-28 10:53 | XMS_ITS | Referral Summary ---
Author Organization [facility] 8 [facility] Address [address] [place] [address] Care Team Providers Care Physical Ther Name Role Phone Loc Kevin MD Primary [...] therapy. Assessment & Plan (09/24/2019 12:53 PM DIABETOLOGIST): Goal of treatment , LDL cholesterol less [...] therapy Assessment & Plan (09/16/2018 12:07 PM DIABETOLOGIST): Goal of treatment , LDL cholesterol less [...] meds Assessment & Plan (09/16/2018 12:07 PM DIABETOLOGIST): Invokana or Jardiance indicated, but pt says [...] microalbumin Assessment & Plan (08/04/2020 10:16 AM DIABETOLOGIST): Goal blood pressure is less than 140/85 Low salt diet was discussed andd recommended The importance of daily aerobic exercise was also emphasized. Continue current meds, including MAGI-I or ARB, e.g. Add chlorthalidone Recheck BMP in 4 weeks. Assessment & Plan (01/28/2020 3:28 PM CDT): Controlled on current medications. Continue plan. Assessment & Plan (10/01/2017 3:09 PM DIABETOLOGIST): Goal blood pressure is less than 140/85 [...] NEC/NOS Assessment & Plan (10/01/2017 3:09 PM DIABETOLOGIST): Goal of treatment , LDL cholesterol less [...] metformin Assessment & Plan (08/04/2020 10:17 AM DIABETOLOGIST): Hba1c was Lab Results Component Value Date [...] reviewed. Assessment & Plan (09/24/2019 12:52 PM DIABETOLOGIST): Hba1c was Lab Results Component Value Date [...] discussed. Assessment & Plan (09/16/2018 12:07 PM DIABETOLOGIST): Hba1c was Lab Results Component Value Date [...] goal hba1c is under 7.0 to prevent care home diabetes complications ( eye , kidney and [...] day Assessment & Plan (10/01/2017 3:01 PM DIABETOLOGIST): Hba1c was 7.7 today, indicating DM control [...] on file Legal Sex Male 11:04 AM DIABETOLOGIST Gender Identity Not on file Sexual Orientation [...] of Treatment Not on file Insurance MEDICARE [facility] Care Teams Physical Ther Relationship Specialty Start Date End Date Loc Kevin MD PCP - General Family Medicine 01/28/20
--- OUTSIDE RECORDS SUMMARY | 2025-01-28 10:53 | XMS_ITS | Continuity of Care Document ---
Author Organization [facility] [place] [address] [facility] [address] [place] [phone] Phone Care Team Providers Care Supervisor Shearing Name Role Phone Celso Silva MD Unavailable Unavailable Allergies, Adverse Reactions, Alerts Substance Reaction Status Criticality No Known Allergies Active No Inform ation Medications Medication Instructions Dosage Effective Dates (start - stop) Status Comments metformin 500 mg tablet take 2 tablet by oral route every day with morning and evening meals 1000 MG - Active Altace 2.5 mg capsule 1 tablet by mouth once a day - Active aspirin 81 mg tablet,delayed release 1 tablet by mouth once a day - Active Pravachol 40 mg tablet 1 tablet by mouth once a day - Active Toprol XL 50 mg tablet,extended release 1 tablet by mouth once a day - Active Xanax 0.5 mg tablet 1 tablet by mouth once a day - Active Humulin 70/30 U-100 Insulin 100 unit/mL subcutaneous suspension inject by subcutaneous route as per insulin protocol 0.00 - Active timolol maleate 0.5 % once daily eye drops instill 1 drop by ophthalmic route 2 times every day into left eye 1 drop - No Longer Active Procedures Procedure Date Refraction No Charge Optomap Fundus Photos 023 Eye Exam & Treatment Fundus Photography W/ Report Eye Exam & Treatment No Charge Refraction Post-op Follow-up Visit Post-op Follow-up Visit Remove Cataract, Post Op Care 0 Remove Cataract, Insert Lens,Comanaged D IOLMaster-Professional No Charge Refraction Post-op Follow-up Visit Remove Cataract, Post Op Care 0 Remove Cataract, Insert Lens,Comanaged N IOLMaster-Professional No Charge Refraction Oct No Charge GDX Retina Oct No Charge Orbscan Oct IOLMaster-Technical Oct No Charge Optomap Fundus Photos Oct-20-2 020 Office/outpatient Visit, Est No Charge Refraction No Charge Optomap Fundus Photos Oct-06-2 020 Eye Exam & Treatment Eye Exam & Treatment Eye Exam & Treatment Eye Exam & Treatment Eye Exam & Treatment Eye Exam & Treatment Eye Exam & Treatment Dilated Retinal Exam W Interpretation Ju No Evidence Of Retinopathy In Prior Year No Charge Refraction Eye Exam & Treatment Certified EMR Dilated Retinal Exam W Interpretation De No Evidence Of Retinopathy In Prior Year Eye Exam & Treatment Dilated Retinal Exam W Interpretation De No Evidence Of Retinopathy In Prior Year Advance Directives Directive Yes / No Effective Date File Name No Information Encounters Encounter Description Practice Location Reason(s) For Visit Diagnoses Date Provider Providers Copied on Encounter [facility], [address], [place], [place], [id number], [place] tel:[phone] [facility] [place] [facility] Professional diabetic eye exam (chief complaint) Type 2 diabetes mellitus without complications Presence of intraocular lens 3 Ricardo Houston. [address] [facility], [place], [place], [address], [place]. tel:[phone] Nadiya Servin MD.Referri Provider: Danny Alberts MD, [address] [place], [address]. tel:[phone] [facility], [address], [place], [place], [address], tel:[phone] [facility] [place] [facility] Professional diabetic eye exam (chief complaint) Type 2 diabetes mellitus without complications Presence of intraocular lensOther secondary cataract, bilateralPing uecula of both eyes 2 Ricardo Houston. [address] [facility], [facility] [address], [place], [place], [address], [place]. tel:[phone] Nadiya Servin MD.Referri ng Provider: Celso Humphries, [address], [place], [address] . tel:[phone] [facility], [address], [place], [place], [address], tel:[phone] SEC Juan Annette [facility] No Information 1 Carolina OD Adelina. [address], [place], [place], [address], [place]. tel:[phone] [facility], [address], [place], [place], [address], [place] tel:[phone] [facility] [place] [facility] Professional 1 mo CE PO (08/10/20) (chief complaint) Post op visit 1 No Information Referring Provider: Danny Alberts MD, [address] [place], [address]. tel:[phone] [facility], [address], [place], [place], [address], [place] tel:[phone] [facility] [place] [facility] Professional Post-Op (chief complaint) Post op visit 0 No Information Referring Provider: Danny Alberts MD, [address] [place], [address]. tel:[phone] [facility], [address] [place] [address] [address], [place], [place], [address], [phone] [facility] [place] [facility] Professional 1 day CE PO (08/10/20) (chief complaint) Post op visit 0 No Information Referring Provider: Danny Alberts MD, [facility] [place], [address]. tel:[phone] [facility], [address] [place] [address] [address], [place], [place], [address], tel:[phone] [facility] No Information Jul- 0 Ricardo Houston. [address] [facility] [place], [address], [place]. tel:[phone] Referring Provider: Danny Alberts MD, [facility] [address], [place], [address]. tel:[phone] [facility], [address] [place] [address] [address], [place], [place], [address], tel:[phone] [facility] [place] [facility] Professional No Information 0 Ricardo Houston. [address] [facility] [place], [place], [address], . tel:[phone] Referring Provider: Danny Alberts MD, [facility] [place], [address]. tel:[phone] [facility], [address] [place] [address] [address], [place], [place], [address], [place] [phone] [facility] [place] [facility] Professional 2 wk po PCIOL OD (07/13/20) (chief complaint) Post op visit Jul- 0 No Information Nadiya Servin MD.Referri ng Provider: Danny Alberts MD, [address] [place], [address]. tel:[phone] [facility], [address] [place] [address] [address], [place], [place], [address], [place] [phone] [facility] [place] [facility] Professional Post-Op (chief complaint) Post op visit 0 No Information Referring Provider: aDnny Alberts MD, [facility] [place], [address]. tel:[phone] [facility], [address] [place] [address] [address], [place], [place], [address], [place] tel:[phone] [facility] No Information 0 Ricardo Houston. [address] [facility], [address], [place], [place], [address], [place]. [phone] Referring Provider: Danny Alberts MD, [facility] [address], [place], [address]. tel:[phone] [facility], [address] [place] [address] [address], [place], [place], [address], [place] tel:[phone] [facility] [place] [facility] Professional No Information 0 Ricardo Houston. [address] [facility], [facility] [place], [address], [place]. [phone] Referring Provider: Danny Alberts MD, [facility] [address], [place], [address]. tel:[phone] Office/outpa tient Visit, [facility], [address], [place], [place], [address], [place] [phone] [facility] [place] [facility] Professional Cataract evaluation (chief complaint) Age-related nuclear cataract, bilateral Oct-2 0- 0 Ricardo Houston. [address] [facility], [address], [place], [place], [address], [place]. [phone] Specialist : [place], [address] [facility] [address], [place], [address] . tel:[phone] erring Provider: Danny Alberts MD, [facility] [place], [address]. tel:[phone] [facility], [address], [place], [place], [address], [place] tel:[phone] SEC [facility] Professional Diabetic eye exam (chief complaint) Type 2 diabetes mellitus without complications Age-related nuclear cataract, bilateral Oct-0 6-202 0 Ricardo Bowenson. [address], [place], [place], [address], [place]. tel:[phone] Nadiya Servin MD.Referri ng Provider: Danny Alberts MD, [facility] [place], [address]. tel:[phone] [facility], [address], [place], [place], [address], [place] tel:[phone] SEC Juan Annette Adams No Information 0 Ricardo Houston. [address], [place], [place], [address], [place]. tel:[phone] [facility], [address], [place], [place], [address], [place] tel:[phone] SEC [facility] Professional diabetic eye exam (chief complaint) Age-related nuclear cataract, bilateralType 2 diabetes mellitus without complications 9 Silva Celso. [address], [facility] [address], [place], [place], [address], [place]. tel:[phone] Specialist : [place], [address], [place], [address]. tel:[phone] erring Provider: Danny Alberts MD, [address], [place], [address]. tel:[phone] [facility], [address], [place], [place], [address], [place] tel: [place] Professional Diabetic eye exam (chief complaint) Age-related nuclear cataract, bilateralType 2 diabetes mellitus without complications Pinguecula of both eyes 8 Ricardo Houston. [address], [address], [place], [place], [address], . tel:[phone] Specialist : [place], [address], [place], [address]. tel:[phone] [place]ialist: [place], [address], [place], [address]. tel:[phone] er Provider: [place], [address] [facility] [address], [place], [address]. tel:[phone] erring Provider: Danny Alberts MD, [facility] [place], [address]. tel:[phone] [facility], [address], [place], [place], [address], [place] tel: SEC [place] Professional No Information 8 Ricardo Houston. [address], [address], [place], [place], [address], [place]. tel:[phone] [facility], [address], [place], [place], [address], [place] tel: SEC [place] Professional diabetic eye exam (chief complaint) Age-related nuclear cataract, right eyeAge-relate d nuclear cataract, left eyeType 2 diabetes mellitus without complications 7 Yuri Ross. [address], [address], [place], [place], [address], [place]. tel:[phone] Referring Provider: Danny Alberts MD, [facility] [place], [address]. tel:[phone] [facility], [address], [place], [place], [address], [place] tel:[phone] [facility] [place] [facility] Professional Complete Exam (chief complaint) No Information 6 Wankum Cody. [address], [place], [place], [address], [place]. tel:[phone] Referring Provider: Danny Alberts MD, [address] [place], [address]. tel:[phone] [facility], [address], [place], [place], [address], [place] tel:[phone] [facility] [place] [facility] Professional Diabetic eye exam (chief complaint) No Information 5 Wankum Cody. [address], [address], [address], [place]. tel:[phone] Referring Provider: Danny Alberts MD, [address] [place], [address]. tel:[phone] [facility], [address], [place], [place], [address], [place] tel:[phone] [facility] [place] [facility] Professional Blurry vision (chief complaint) No Information 4 Wankum Cody. [address] [facility], [address], [address], [place]. tel:[phone] Referring Provider: Danny Alberts MD, [address] [place], [address]. tel:[phone] [facility], [address], [place], [place], [address], [place] tel:[phone] [facility] [place] [facility] Professional No Information 2 Wankum Cody. [address] [facility], [address], [address], [place]. tel:[phone] Referring Provider: Danny Alberts MD, [address] [place], [address]. tel:[phone] [facility], [address], [place], [place], [address], [place] tel:[phone] [facility] [place] [facility] Professional No Information 9 Yuri Ross. [address] [facility], [address], [place], [place], [address], [place]. tel:[phone] Family History Family Member Type Diagnosis Age At Onset Problem (finding) Family history of Diabe axel mellitus Payers Payer name Insurance type Covered libertarian ID Jenny prakash(s) [employer] CI [id number] Social History Type Description Quantity Date Captured Comments Alcohol Use Details No Caffeine Use Details 2 cups per day Tobacco Use Status Ex-cigarette smoker 023 Smoking Status Former smoker Smoking Tobacco Use Details Cigarette: Age Stopped: 70 Cigarette: No Details Available Sex Male Sexual Orientation Don't Know Gender Identity Male Chief Complaint And Reason For Visit From encounter dated '01/11/2023 13:15'. diabetic eye exam (chief complaint). Description: The 77 year old patient presents for a complete Type II diabetic exam ou. Patient is pseudo ou. Patient doesn't think he isn't seeingthe golf ball like he was. Last A1C was 6.8 and PCP treats DM. Reason For Referral Reason For Referral No Information Plan Of Treatment Date Type Action Status Patient Education Type 2 Diabetes: Care I nstructions completed Patient Education Learning About YAG Lase r Capsulotomy completed Patient Education Cataract Surgery: What to Expect at H~ completed Patient Education Cataracts: Care Instruc tions completed Patient Education Cataracts: Care Instruc tions completed History Of Present Illness Encounter Date Complaint History Of Prese nt Illness diabetic eye exam The 77 year ol d patient presents for a complete Type II diabetic exam ou. Patient is pseudo ou. Patient doesn't think he isn't seeing the golf ball like he was. Last A1C was 6.8 and PCP treats DM. diabetic eye exam The 76 year ol d patient presents for a complete Type II diabetic exam. BS was 65 this am and PCP treats DM. Patient is pseudo ou. Patient denies any changes in vision ou. 1 mo CE PO (08/10/20) The 75 yea r old male presents for evaluation of 1 mo CE PO (08/10/20) in the left eye. Pt reports he finished Sx gtts yesterday and isn't currently using any gtts, OU. Pt reports OS is doing good and he can see the golf ball better since CE, OS. Post-Op The 75 year old male presents for a 1 week post op CE OS. Patient is using Pred, Vigamox and Ketoralac qid OS and Dorzolamide bid OS and Timolol bid OS. Patient states OS is doing good. 1 day CE PO (08/10/20) The 75 ye ar old male presents for evaluation of 1 day CE PO (08/10/20) in the left eye. Pt reports he is using Vigamox QID OS, Pred QID OS, and Ketorolac QID OS. PO instructions were given, explained and understood by pt. Pt reports OS is doing good and no pain or discomfort today. 2 wk po PCIOL OD (07/13/20) The 75 year old male presents for evaluation of 2 wk po PCIOL OD (07/13/20) in the right eye. Pt reports good comfort and vision OD. Pr reports taking Pred, Ket, and Vig QID OD. Pt is also taking Combigan BID OD. Pt reports glare while driving at night. Pt reports trouble reading at near such as newspapers, books, and medicine bottles OS x many months. Post-Op The 75 year old male presents for a 1 day post op CE OD. Patient is using Pred, Vigamox and Ketorolac qid OD. Patient denies any pain or discomfort. Cataract evaluation The 75 year old male presents for evaluation of Cataract evaluation in the right eye and left eye. Patient states he has difficulty seeing in bright sunlight with both eyes x years. Patient has difficulty reading small print like a newspaper with both eyes. Patient has trouble seeing print on the television with both eyes x 1 year. Patient is a Type 2 diab x 25 years, Insulin dependant x 20 years, BS checked this am @ 206, and Dr. Servin treats his diab. Diabetic eye exam The 75 year ol d male presents for evaluation of Diabetic eye exam in the right eye and left eye. Hx of Cataracts OU. Patient states he doesn't see as far as he use to. Patient is a Type 2 diab x 25 years, Insulin dependant x 20 years, BS checked this am @ 99, a1c 7.4, and Dr. Servin treats is diab. Patient states both of his doctors want a report. Patient wants a new rx for glasses. diabetic eye exam The 73 year ol d male presents for evaluation of diabetic eye exam in the right eye and left eye. BS was 169 this am. Last A1C was 7.5. Patient states Dr. Servin would like a report. Patient denies any changes in vision ou. Diabetic eye exam The 72 year ol d male presents for evaluation of Diabetic eye exam in the right eye and left eye. Hx of mild Cataracts OU. Patients states he has noticed any changes with eyes. Patient not sure if he is Tpe 1 or 2 diabetic. Patient has been a diab for 28 years, Insulin dependant for 25 years, BS checked this am @ 129, and A1c was 7.1. Patients diab monitored by Dr Servin. Please send letter per pt has not been getting yearly letters. diabetic eye exam The 71 year ol d male presents for a complete Type II diabetic exam ou. Patient states BS is good. Last A1C was 7.4. Patient denies any changes in vision ou. Complete Exam The 71 year old male presents for Complete Exam. Patient has hx of NIDDM II ( BS this morning 75 and last A1C was 7.4) and cataracts OU. Patient reports stable vision OU. patient does not want refraction Diabetic eye exam The 70 year ol d male presents for a complete insulin dependent Type II diabetic eye exam ou. Patient states last A1C 7.0. Patient denies any changes in vision ou. Blurry vision The 68 year old male presents for a complete DM exam. Pt hx of Cataracts. Pt feels that his vision has decreased both at distance and arms length. Pt states that he feels his depth perception is off, having problems seeing the golf ball. Pt does not currently use at gtts. Blood sugar this morning was 83, last A1C in December was 7.4. Functional Status Date Functional Assessmen t No Information Instructions Date Instruction Additional Infor laila Impression/Plan Impression/Plan Impression/Plan Impression/Plan Impression/Plan Impression/Plan Impression/Plan Impression/Plan Impression/Plan Impression/Plan Educational material given Relat ed to Age-related nuclear cataract, bilateral Impression/Plan Age-related nuclear cataract, right eye - Educational material given Related to Age-related nuclear cataract, right eye Follow up - 1 year for complete DM exam Impression/Plan - Di scussed diagnosis in detail with patient. Discussed cataracts with pt and treatment options. pt also understands at this time vision does not qualify to have CE with insurance coverage. Diabetes type II: no background retinopathy, no signs of neovascularization noted. Discussed ocular and systemic benefits of blood sugar control. DM letter sent to Dr Alberts. No signs of Glaucoma or AMD OU. Return to clinic in 1 year for complete DM exam or sooner with any problems. Follow up - Return i n 1 year with Cody Welch M.D. for Complete Exam. Impression/Plan - Di scussed diagnosis in detail with patient. Discussed cataracts with pt and treatment options. pt also understands at this time vision does not qualify to have CE with insurance coverage. Diabetes type II: no background retinopathy, no signs of neovascularization noted. Discussed ocular and systemic benefits of blood sugar control. DM letter sent to DR Alberts. Return to clinic in 1 year for complete diabetic exam or sooner with any problems. Age-related nuclear cataract, left eye - Educational material given Related to Age-related nuclear cataract, left eye Impression/Plan - Di abetes type II: no background retinopathy, no signs of neovascularization noted. Discussed ocular and systemic benefits of blood sugar control. DM letter sent to Nicole Alberts and Gareth. Return in 1 year for complete diabetic exam or sooner with any problems. Follow up - Return i n 1 year with Cody Welch M.D. for Complete Exam. 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
== END 2025-01-28 10:00 | disposition home or self-care (01) ==
LOC: CHSIMG 10:00
PROVIDERS: PCP Family Medicine; Visit Provider Family Medicine
DX: M54.9 Dorsalgia, unspecified (principal); M43.06 Spondylolysis, lumbar region
CPT/HCPCS: 72100; 72202

== ENCOUNTER 2025-06-24 09:22 | Outpatient (CLI) | payer MEDICARE, SELFPAY ==
--- NOTE | ~2025-06-24 | XR_ITS ---
EXAMINATION: XR chest 2V, 06/24/2025 9:30 CDT HISTORY: R05.3 - Chronic cough COMPARISON: No comparisons available. Technique: 2 views obtained. Findings: The lungs are clear, no effusion. No pneumothorax. Heart is normal size. Mediastinal and hilar contours are within normal limits. Poststernotomy Impression: No acute cardiopulmonary abnormality. Reviewed, dictated and finalized at location P. Impression: No acute cardiopulmonary abnormality.
--- OUTSIDE RECORDS SUMMARY | 2025-06-24 10:03 | XMS_ITS | Clinical Summary ---
Author Organization [facility] Address [address] [place] [address] Care Team Providers Care Mold Hoister Name Role Phone Unavailable Primary Care Provider Unavailabl e Social History Tobacco Use Types Packs/Day Years Used Date Smoking Tobacco: Never Assessed Sex and Gender Information Value Date Recorded Sex Assigned at Not on file Legal Sex Male 11:06 PM CDT Gender Identity Not on file Sexual Orientation Not on file Plan of Treatment Health Maintenance Due Date Last Done Comments DTaP, Tdap and Td Vaccines ( 1 - Tdap) 1963 Pneumococcal Vaccine: 50+ Ye ars (1 of 1 - PCV) 1994 Zoster Vaccines (1 of 2) 1994 RSV Immunization or 60+ Years (1 - 1-dose 75+ series) 2019 COVID-19 Vaccine ( - 2024-2 6 season) 2025 Influenza Adult (#1) 2025 Hepatitis A Vaccines Aged Out No long er eligible based on patient's age to complete this topic Meningococcal B Vaccine Aged Out No l onger eligible based on patient's age to complete this topic Meningococcal Vaccine Aged Out No cristina arielle eligible based on patient's age to complete this topic RSV Immunizations Under 20 Months Aged Out No longer eligible based on patient's age to complete this topic
--- OUTSIDE RECORDS SUMMARY | 2025-06-24 10:03 | XMS_ITS | Clinical Summary ---
Author Organization [facility] Address [address] [place] [address] Care Team Providers Care Collection Technician Name Role Phone Loc Kevin MD Primary [...] therapy. Assessment & Plan (09/24/2019 12:53 PM MAPPING EDITOR): Goal of treatment , LDL cholesterol less [...] therapy Assessment & Plan (09/16/2018 12:07 PM MAPPING EDITOR): Goal of treatment , LDL cholesterol less [...] meds Assessment & Plan (09/16/2018 12:07 PM MAPPING EDITOR): Invokana or Jardiance indicated, but pt says [...] microalbumin Assessment & Plan (08/04/2020 10:16 AM MAPPING EDITOR): Goal blood pressure is less than 140/85 Low salt diet was discussed andd recommended The importance of daily aerobic exercise was also emphasized. Continue current meds, including MAGI-I or ARB, e.g. Add chlorthalidone Recheck BMP in 4 weeks. Assessment & Plan (01/28/2020 3:28 PM CDT): Controlled on current medications. Continue plan. Assessment & Plan (10/01/2017 3:09 PM MAPPING EDITOR): Goal blood pressure is less than 140/85 [...] NEC/NOS Assessment & Plan (10/01/2017 3:09 PM MAPPING EDITOR): Goal of treatment , LDL cholesterol less [...] metformin Assessment & Plan (08/04/2020 10:17 AM MAPPING EDITOR): Hba1c was Lab Results Component Value Date [...] reviewed. Assessment & Plan (09/24/2019 12:52 PM MAPPING EDITOR): Hba1c was Lab Results Component Value Date [...] discussed. 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 ( eye , kidney and [...] day Assessment & Plan (10/01/2017 3:01 PM MAPPING EDITOR): Hba1c was 7.7 today, indicating DM control [...] skin Gastroesophageal reflux disease GERD Diabetes mellitus Diabetes Hyperlipidemia Hyperlipidemia Anxiety disorder Anxiety Hx Other Medical Claustrophobic; Comments: GFC 05/04/2014 - Type 2 diabetes mellitus Diabete s type 2; Comments: AMB 11/28/2015 - Hx [...] on file Legal Sex Male 11:04 AM MAPPING EDITOR Gender Identity Not on file Sexual Orientation [...] of Treatment Not on file Insurance MEDICARE [facility] Care Teams Collection Technician Relationship Specialty Start Date End Date Loc Kevin MD PCP - General Family Medicine 01/28/20
== END 2025-06-24 09:23 | disposition home or self-care (01) ==
LOC: CHSIMG 09:23
PROVIDERS: PCP Family Medicine; Visit Provider Family Medicine
DX: R05.3 Chronic cough (principal)
CPT/HCPCS: 71046

== ENCOUNTER 2025-08-10 08:00 | Outpatient (CLI) | payer MEDICARE, SELFPAY ==
--- OUTSIDE RECORDS SUMMARY | 2025-08-10 08:08 | XMS_ITS | Clinical Summary ---
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
--- OUTSIDE RECORDS SUMMARY | 2025-08-10 08:08 | XMS_ITS | Clinical Summary ---
Author Organization [facility] 8 [facility] Address [address] [place] [address] Care Team Providers Care Tube Fitter Name Role Phone Loc Kevin MD Primary [...] therapy. 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 Continue current meds, including MAGI-I or ARB, e.g. Add chlorthalidone Recheck BMP in 4 weeks. Assessment & Plan (01/28/2020 3:28 PM CDT): Controlled on current medications. Continue plan. Assessment & Plan (10/01/2017 3:09 PM BEAD FORMING MACHINE SET UP OPERATOR): Goal blood pressure is less than [...] NEC/NOS Assessment & Plan (10/01/2017 3:09 PM BEAD FORMING MACHINE SET UP OPERATOR): Goal of treatment , LDL cholesterol [...] metformin Assessment & Plan (08/04/2020 10:17 AM BEAD FORMING MACHINE SET UP OPERATOR): Hba1c was Lab Results Component Value [...] reviewed. Assessment & Plan (09/24/2019 12:52 PM BEAD FORMING MACHINE SET UP OPERATOR): Hba1c was Lab Results Component Value [...] discussed. 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
--- OUTSIDE RECORDS SUMMARY | 2025-08-10 08:08 | XMS_ITS | Patient Health Record ---
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 Name Role Phone CHARIS Ahn Unavailable [phone] Loc Kevin Unavailable Unavailable Reason For Referral No Information Social History Social History Additional Details Category Social Info Options Details Migrated Social History Migrated Social History Smoking Status : Former tobacco user , History of tobacco use : Plan Of Treatment No Information Insurance Providers Payer Name Payer Address Payer Phone Subscriber Number Group Number Insured Name Patient Relationship to Insured Coverage Start Date Coverage End Date Medicare Part B [place] [address] [place] [address] [id number] LIUDMILA ISABELA Self - patient is the insured [facility] ([facility]) ATTN CLAIMS [address] [place] [address] [id number] KRISTIE NURIL Self - patient is the insured
[2025-08-10 08:47] LABS: Anion Gap 9 mmol/L (4-12); Blood Urea Nitrogen 27 mg/dL (9-20); Calcium 9.8 mg/dL (8.4-10.2); Carbon Dioxide 28 mmol/L (22-30); Chloride 104 mmol/L (98-107); Estimated Glomerular Filt Rate 44; Glucose 200 mg/dL (65-110); Magnesium 2.3 mg/dL (1.6-2.3); Osmolality Calculated 303 mOsm/kg (285-295); Potassium 4.4 mmol/L (3.4-5.0); Sodium 141 mmol/L (137-145)
== END 2025-08-10 08:01 | disposition home or self-care (01) ==
LOC: CHSLAB 08:01
PROVIDERS: PCP Family Medicine; Visit Provider Internal Medicine Cardiovascular Disease
DX: I10 Essential (primary) hypertension (principal)
CPT/HCPCS: 36415; 80048; 83735